=== PATIENT | female | born 1975 | race Caucasian/White ===

== ENCOUNTER 2018-07-24 11:40 | Emergency (ER) | payer OTHER ==
[~2018-07-24] VITALS: Ht 162.6 cm; Wt 85.7 kg
[~2018-07-24 11:40] MED LIST: EFFEXOR XR75 MG; NORCO 5-325 TA1 EACH PO; SPIRONOLACTONE25 M1 PO; TRIMETHOBENZAM300 M1 PO; ZOFRAN4 MG PO
[2018-07-24] MEDS ORDERED: LIPITOR10 MG PO (11:51)
[2018-07-24] MEDS ORDERED: TOPAMAX 100 MG100 MG PO (11:51)
[2018-07-24] MEDS ORDERED: IBS (11:52)
[2018-07-24 12:54] LABS: ABSOLUTE LYMPHOCYTES 1.8 thou/uL (0.8-5.3); ABSOLUTE MONOCYTES 0.4 thou/uL (0.0-1.2); ABSOLUTE NEUTROPHILS 5.4 thou/uL (1.6-8.1); BASOPHILS 0.6 %; HEMATOCRIT 40.9 % (37.0-47.0); LYMPHOCYTES 23.5 %; MCH 29.4 pg (26.0-34.0); MCHC 34.3 g/dL (28.0-37.0); MCV 85.6 fL (80.0-100.0); MONOCYTES 4.8 %; MPV 7.7 fl. (7.2-11.1); NUCLEATED RBCS 0 /100WBC; PLATELET COUNT* 211 thou/uL (150-400); POLYS 71.1 %; RBC 4.77 mil/uL (4.20-5.00); RDW-CV 14.5 % (10.5-14.5); WBC 7.6 thou/uL (4.0-11.0)
[2018-07-24 13:07] LABS: ALBUMIN 2.8 g/dL (3.4-5.0); CALCIUM 8.6 mg/dL (8.5-10.1); CREATININE 0.9 mg/dL (0.6-1.3); TOTAL BILIRUBIN 0.3 mg/dL (<0.1-1.0)
[2018-07-24 13:50] LABS: URINE BILIRUBIN NEGATIVE (Negative); URINE BLOOD NEGATIVE (Negative); URINE CLARITY CLEAR; URINE COLOR YELLOW; URINE GLUCOSE-RANDOM NEGATIVE (Negative); URINE LEUKOCYTES-REFLEX 1+ (Negative); URINE NITRITE-REFLEX NEGATIVE (Negative); URINE PROTEIN NEGATIVE (Negative); URINE UROBILINOGEN 0.2 E.U./dl (0.2-1.0)
[2018-07-24 13:52] LABS: URINE KETONES 3+ (Negative)
[2018-07-24 14:00] LABS: BACTERIA-REFLEX 1-9 Few /HPF (None Seen); CASTS None Seen /LPF (None Seen); CRYSTALS None Seen /LPF (None Seen); MUCUS None Seen strn/LPF (None Seen); SQUAMOUS >10 Many /LPF (0-3); URINE RBC 3-10 Few /HPF (0-2); URINE WBC-REFLEX 0-5 Rare /HPF (0-5)
[2018-07-24] MEDS ORDERED: HYDROCODON-ACE1 EAC7 PO (14:59)
[2018-07-24] MEDS ORDERED: FLOMAX0.4 MG PO (14:59)
[2018-07-24] MEDS ORDERED: ZOFRAN4 MG PO (14:59)
[2018-07-24 15:12] VITALS: BP 126/85
== END 2018-07-24 15:12 | disposition home or self-care (01) ==
LOC: M.ERS 11:40
PROVIDERS: Emergency Medicine
DX: N20.0 Calculus of kidney (principal); R11.2 Nausea with vomiting, unspecified; G43.909 Migraine, unspecified, not intractable, without status migrainosus; K58.9 Irritable bowel syndrome, unspecified; F17.210 Nicotine dependence, cigarettes, uncomplicated; Z88.1 Allergy status to other antibiotic agents

== ENCOUNTER 2018-12-25 03:36 | Emergency (ER) | payer OTHER ==
[~2018-12-25] VITALS: Ht 162.6 cm; Wt 84.8 kg
[~2018-12-25 03:36] MED LIST changes: +FLOMAX0.4 MG PO; +HYDROCODON-ACE1 EAC7 PO; +IBS; +LIPITOR10 MG PO; +TOPAMAX 100 MG100 MG PO
[2018-12-25] MEDS ORDERED: MINOCYCLINE HC100 M2 PO (03:50)
[2018-12-25 04:14] LABS: URINE BILIRUBIN NEGATIVE (Negative); URINE BLOOD 2+ (Negative); URINE CLARITY CLEAR; URINE COLOR YELLOW; URINE GLUCOSE-RANDOM NEGATIVE (Negative); URINE KETONES NEGATIVE (Negative); URINE LEUKOCYTES-REFLEX 1+ (Negative); URINE NITRITE-REFLEX NEGATIVE (Negative); URINE PROTEIN NEGATIVE (Negative); URINE SPECIFIC GRAVITY 1.015 (1.005-1.030); URINE UROBILINOGEN 0.2 E.U./dl (0.2-1.0)
[2018-12-25 04:52] LABS: ABSOLUTE EOSINOPHILS 0.1 thou/uL (0.0-0.7); ABSOLUTE MONOCYTES 0.8 thou/uL (0.0-1.2); BASOPHILS 0.4 %; EOSINOPHILS 1.3 %; HEMATOCRIT 39.7 % (37.0-47.0); HEMOGLOBIN 13.4 gm/dL (12.0-15.0); LYMPHOCYTES 18.3 %; MCH 29.3 pg (26.0-34.0); MCHC 33.8 g/dL (28.0-37.0); MCV 86.8 fL (80.0-100.0); MONOCYTES 7.1 %; MPV 7.8 fl. (7.2-11.1); NUCLEATED RBCS 0 /100WBC; PLATELET COUNT* 219 thou/uL (150-400); POLYS 72.9 %; RBC 4.57 mil/uL (4.20-5.00); RDW-CV 13.5 % (10.5-14.5); WBC 10.9 thou/uL (4.0-11.0)
[2018-12-25 05:18] LABS: SQUAMOUS 4-10 Moderate /LPF (0-3)
[2018-12-25 05:19] LABS: BACTERIA-REFLEX 1-9 Few /HPF (None Seen); CASTS None Seen /LPF (None Seen); CRYSTALS None Seen /LPF (None Seen); MUCUS 4-6 Moderate strn/LPF (None Seen); URINE RBC 3-10 Few /HPF (0-2); URINE WBC-REFLEX 6-15 Few /HPF (0-5)
[2018-12-25 05:21] LABS: CALCIUM 8.5 mg/dL (8.5-10.1); CREATININE 0.8 mg/dL (0.6-1.3); POTASSIUM 3.6 mmol/L (3.5-5.1)
[2018-12-25] MEDS ORDERED: ZOFRAN ODT4 MG PO (05:54)
[2018-12-25] MEDS ORDERED: NORCO 7.5-3251 EACH PO (05:54)
[2018-12-25] MEDS ORDERED: BACTRIM DS TAB1 EACH PO (05:54)
[2018-12-25 06:29] VITALS: BP 113/73
== END 2018-12-25 06:32 | disposition home or self-care (01) ==
LOC: M.ERS 03:36
PROVIDERS: Emergency Medicine
DX: N39.0 Urinary tract infection, site not specified (principal); G43.909 Migraine, unspecified, not intractable, without status migrainosus; K58.9 Irritable bowel syndrome, unspecified; F17.210 Nicotine dependence, cigarettes, uncomplicated; Z88.1 Allergy status to other antibiotic agents

== ENCOUNTER 2019-02-12 06:05 | Emergency (ER) | payer OTHER ==
[~2019-02-12] VITALS: Ht 162.6 cm; Wt 85.7 kg
[~2019-02-12 06:05] MED LIST changes: +BACTRIM DS TAB1 EACH PO; +MINOCYCLINE HC100 M2 PO; +NORCO 7.5-3251 EACH PO; +ZOFRAN ODT4 MG PO
[2019-02-12 06:30] LABS: ABSOLUTE BASOPHILS 0.1 thou/uL (0.0-0.2); ABSOLUTE EOSINOPHILS 0.2 thou/uL (0.0-0.7); ABSOLUTE LYMPHOCYTES 2.7 thou/uL (0.8-5.3); ABSOLUTE MONOCYTES 0.8 thou/uL (0.0-1.2); ABSOLUTE NEUTROPHILS 6.5 thou/uL (1.6-8.1); BASOPHILS 0.8 %; EOSINOPHILS 2.1 %; HEMATOCRIT 40.9 % (37.0-47.0); HEMOGLOBIN 14.3 gm/dL (12.0-15.0); LYMPHOCYTES 25.9 %; MCH 29.9 pg (26.0-34.0); MCHC 34.8 g/dL (28.0-37.0); MCV 85.8 fL (80.0-100.0); MONOCYTES 7.9 %; MPV 7.8 fl. (7.2-11.1); NUCLEATED RBCS 0 /100WBC; PLATELET COUNT* 224 thou/uL (150-400); POLYS 63.3 %; RBC 4.77 mil/uL (4.20-5.00); RDW-CV 13.2 % (10.5-14.5); WBC 10.3 thou/uL (4.0-11.0)
[2019-02-12 06:34] LABS: CREATININE 0.8 mg/dL (0.6-1.3)
[2019-02-12 06:39] LABS: ALBUMIN 2.7 g/dL (3.4-5.0); TOTAL BILIRUBIN 0.3 mg/dL (<0.1-1.0); TOTAL PROTEIN 6.6 g/dL (6.4-8.2)
[2019-02-12 06:39] LABS: URINE BILIRUBIN NEGATIVE (Negative); URINE BLOOD NEGATIVE (Negative); URINE CLARITY CLEAR; URINE COLOR YELLOW; URINE GLUCOSE-RANDOM NEGATIVE (Negative); URINE KETONES NEGATIVE (Negative); URINE LEUKOCYTES-REFLEX NEGATIVE (Negative); URINE NITRITE-REFLEX NEGATIVE (Negative); URINE PROTEIN NEGATIVE (Negative); URINE SPECIFIC GRAVITY 1.025 (1.005-1.030); URINE UROBILINOGEN 0.2 E.U./dl (0.2-1.0)
[2019-02-12 09:42] VITALS: BP 106/79
== END 2019-02-12 09:43 | disposition still patient (30) ==
LOC: M.ERS 06:05
PROVIDERS: Emergency Medicine
DX: R10.31 Right lower quadrant pain (principal); R11.2 Nausea with vomiting, unspecified; K58.9 Irritable bowel syndrome, unspecified; G43.909 Migraine, unspecified, not intractable, without status migrainosus; F17.210 Nicotine dependence, cigarettes, uncomplicated; Z87.442 Personal history of urinary calculi; Z88.1 Allergy status to other antibiotic agents

== ENCOUNTER 2019-11-01 17:35 | Emergency (ER) | payer OTHER ==
[~2019-11-01] VITALS: Ht 162.6 cm; Wt 81.7 kg
[2019-11-01] MEDS ORDERED: RIZATRIPTAN10 M1 PO (17:45)
[2019-11-01] MEDS ORDERED: IMITREX 50 MG T50 MG PO (17:46)
[2019-11-01] MEDS ORDERED: BUTALB-APAP-CA1 EACH PO (19:21)
[2019-11-01 19:36] VITALS: BP 108/66
== END 2019-11-01 19:37 | disposition home or self-care (01) ==
LOC: M.ERS 17:35
DX: G43.909 Migraine, unspecified, not intractable, without status migrainosus (principal); R11.2 Nausea with vomiting, unspecified; K58.9 Irritable bowel syndrome, unspecified; F17.210 Nicotine dependence, cigarettes, uncomplicated; Z90.710 Acquired absence of both cervix and uterus; Z87.442 Personal history of urinary calculi; Z88.8 Allergy status to other drugs, medicaments and biological substances